=== PATIENT | male | born 1950 | race Caucasian/White ===

== ENCOUNTER → 2018-09-16 | Outpatient (CLI) | payer OTHER, BC ==
[~2018-09-16] MED LIST: CHILDREN'S ASPI81 M1 PO; COZAAR 25 MG TA25 M1 PO; DICLOFENAC SODI75 MG PO; EFFIENT10 MG PO; FENOFIBRATE160 MG PO; FLEXERIL PO; FLOMAX0.4 MG PO; INVOKANA100 MG PO; LEXAPRO20 MG PO; LIPITOR 20 MG T20 M1 PO; MIRAPEX0.125 MG PO; PRILOSEC OTC20 MG PO; PROSCAR 5MG TABL5 M1 PO; SORINE 80 MG TA80 M1 PO; TOPROL XL25 MG PO; TOUJEO MAX300 UNIT/1 SUBQ; UNICOMPLEX M TA1 TA1 PO; VITAMIN D400 UNIT PO
== END ==
LOC: RAD 08:24
DX: J98.4 Other disorders of lung (principal); J98.6 Disorders of diaphragm

== ENCOUNTER → 2018-09-23 | Outpatient (CLI) | payer OTHER, BC ==
--- NOTE | ~2018-09-23 | 2DMMODE ---
[facility] [place] [address] 2 D/M-MODE ECHOCARDIOGRAM Name: QUETA BECKER Room #: REG [facility]#: [id number] Admission: 09/23/18 Attend Phys: Fidel East MD Discharge: Date of : 54 Date of Service: 09/23/18 1002 Report #: [id number] THIS REPORT FOR: //name// APPROVED REPORT Study performed: 09/23/2018 07:55:58 EXAM: Comprehensive 2D, Doppler, and color-flow Echocardiogram Patient Location: Out-Patient Status: routine BSA: 2.35 HR: 52 bpm BP: 145/70 mmHg Other Information Study Quality: Adequate Indications Diabetes Hypertension/HDD Hx afib, tobacco abuse 2D Dimensions RVDd: 35.60 mm IVSd: 11.32 (7-11mm) LVOT Diam: 23.14 (18-24mm) LVDd: 52.51 mm PWd: 12.00 (7-11mm) Ascending Ao: 31.66 (22-36mm) LVDs: 35.08 (25-40mm) Aortic Root: 34.34 mm IVC: 20.00 mm Volumes Left Atrial Volume (Systole) Single Plane 4CH: 45.06 mL Single Plane 2CH: 47.29 mL LA ESV Index: 21.00 mL/m2 Aortic Valve AoV Peak Aime.: 1.02 m/s AO Peak Gr.: 4.19 mmHg LVOT Max P.93 mmHg LVOT Max V: 0.69 m/s JUAN Vmax: 2.85 cm2 AI Vmax: 3.05 m/s AI Stevens: 1.73 m/s2 AI PHT: 511.[address] [facility] [place] [place] [address] 2 D/M-MODE ECHOCARDIOGRAM Name: QUETA BECKER Room #: REG [facility]#: [id number] Admission: 09/23/18 Attend Phys: Fidel East MD Discharge: Date of : 54 Date of Service: 09/23/18 1002 Report #: [id number] Mitral Valve E/A Ratio: 1.5 MV Decel. Time: 257.11 ms MV E Max Aime.: 0.90 m/s MV A Aime.: 0.62 m/s MV PHT: 74.56 ms IVRT: 115.34 ms Pulmonary Valve PV Peak Aime.: 0.61 m/s PV Peak Gr.: 1.51 mmHg Pulmonary Vein P Vein S: 0.50 m/s P Vein A: 0.20 m/s P Vein D: 0.48 m/s P Vein A Dur.: 120.0 msec P Vein S/D Ratio: 1.04 Tricuspid Valve TR Peak Aime.: 2.57 m/s RAP Estimate: 10.00 mmHg TR Peak Gr.: 26.33 mmHg PA Pressure: 36.00 mmHg Left Ventricle The left ventricle is normal size. There is hypokinesis of the basal inferior segment. There is normal left ventricular wall thickness. The left ventricular systolic function is normal. The left ventricular ejection fraction is within the normal range. LVEF is 55-60%. Grade II - pseudonormal filling dynamics. Right Ventricle The right ventricle is normal size. The right ventricular systolic function is normal. Atria The left atrium size is normal. Right atrium is at the upper limits of normal. Aortic Valve The aortic valve is normal in structure. Mild aortic regurgitation. There is no aortic valvular stenosis. Mitral Valve The mitral valve is normal in structure. Moderate mitral regurgitation. No evidence of mitral valve stenosis. Tricuspid Valve The tricuspid valve is normal in structure. Trace to mild tricuspid [facility] [address] [place] [address] 2 D/M-MODE ECHOCARDIOGRAM Name: QUETA BECKER Room #: REG CL [facility]#: [id number] Admission: 09/23/18 Attend Phys: Fidel East MD Discharge: Date of : 54 Date of Service: 09/23/18 1002 Report #: [id number] regurgitation. PAP is estimated at 36 mmHg. Pulmonic Valve The pulmonary valve is normal in structure. Mild pulmonic regurgitation. Great Vessels The aortic root is normal in size. IVC is normal in size and collapses <50% with inspiration. Pericardium There is no pericardial effusion. <Conclusion> The left ventricle is normal size. There is normal left ventricular wall thickness. The left ventricular systolic function is normal. Grade II - pseudonormal filling dynamics. The right ventricle is normal size. The left atrium size is normal. Mild aortic regurgitation. Moderate mitral regurgitation. Trace to mild tricuspid regurgitation. PAP is estimated at 36 mmHg. <ELECTRONICALLY SIGNED> By: Fidel East MD 09/23/18 1002 1002 1002 Fidel East MD /INF
== END ==
LOC: CV 07:42
DX: I08.0 Rheumatic disorders of both mitral and aortic valves (principal); E11.9 Type 2 diabetes mellitus without complications; I10 Essential (primary) hypertension; I48.0 Paroxysmal atrial fibrillation; F17.291 Nicotine dependence, other tobacco product, in remission

== ENCOUNTER → 2019-04-05 | Outpatient (CLI) | payer OTHER, BC ==
--- NOTE | 2019-04-05 11:51 | 2DMMODE ---
[facility] [place] [address] [address] 2 D/M-MODE ECHOCARDIOGRAM Name: QUETA BECKER Room #: REG [facility]#: [id number] ������������� Admission: 04/05/19 ������������� Attend Phys: Fidel East MD Discharge: ��� ������������� ��� Date of : 54 Date of Service: 04/05/19 1151 �� Report #: [id number] �������� ��������������������������������������������[id number] THIS REPORT FOR: //name// APPROVED REPORT Study performed: 04/05/2019 07:49:32 EXAM: Comprehensive 2D, Doppler, and color-flow Echocardiogram Patient Location: Out-Patient Room #: Echo lab 2 Status: routine BSA: 2.41 HR: 73 bpm BP: 142/76 mmHg Rhythm: NSR Other Information Study Quality: Adequate Indications Diabetes CAD Hypertension/HDD Hx Atrial fibrillation 2D Dimensions RVDd: 31.41 mm IVSd: 12.19 (7-11mm) LVOT Diam: 22.52 (18-24mm) LVDd: 41.46 mm PWd: 12.12 (7-11mm) Ascending Ao: 29.38 (22-36mm) LVDs: 27.43 (25-40mm) Aortic Root: 28.77 mm IVC: 15.00 mm Volumes Left Atrial Volume (Systole) Single Plane 4CH: 58.62 mL Single Plane 2CH: 38.52 mL LA ESV Index: 21.00 mL/m2 Aortic Valve AoV Peak Aime.: 1.13 m/s AO Peak Gr.: 5.09 mmHg LVOT Max P.51 mmHg LVOT Max V: 0.79 m/s JUAN Vmax: 2.80 cm2 Mitral Valve [facility] [address] [place] [address] 2 D/M-MODE ECHOCARDIOGRAM Name: BECKERQUETA GLASGOW Room #: REG CL [facility]#: [id number] ������������� Admission: 04/05/19 ������������� Attend Phys: Fidel East MD Discharge: ��� ������������� ��� Date of : 54 Date of Service: 04/05/19 1151 �� Report #: [id number] �������� ��������������������������������������������[id number] E/A Ratio: 0.9 MV Decel. Time: 255.89 ms MV E Max Aime.: 0.77 m/s MV A Aime.: 0.86 m/s MV PHT: 74.21 ms IVRT: 133.79 ms Pulmonary Valve PV Peak Aime.: 0.87 m/s PV Peak Gr.: 3.02 mmHg Pulmonary Vein P Vein S: 0.54 m/s P Vein A: 0.24 m/s P Vein D: 0.38 m/s P Vein A Dur.: 110.7 msec P Vein S/D Ratio: 1.42 Tricuspid Valve TR Peak Aime.: 2.46 m/s TR Peak Gr.: 24.17 mmHg PA Pressure: 29.00 mmHg Left Ventricle The left ventricle is normal size. There is normal LV segmental wall motion. Mild concentric left ventricular hypertrophy. The left ventricular systolic function is normal. The left ventricular ejection fraction is within the normal range. LVEF is 60-65%. Grade I - abnormal relaxation pattern. Right Ventricle The right ventricle is normal size. The right ventricular systolic function is normal. Atria The left atrium size is normal. The right atrium size is normal. Aortic Valve The aortic valve is normal in structure. Mild aortic regurgitation. There is no aortic valvular stenosis. Mitral Valve The mitral valve is normal in structure. Mild mitral regurgitation. No evidence of mitral valve stenosis. Tricuspid Valve The tricuspid valve is normal in structure. There is trace tricuspid regurgitation. Estimated PAP 29 mmHg. There is no pulmonary [facility] [address] [place] [address] 2 D/M-MODE ECHOCARDIOGRAM Name: QUETA BECKER Room #: REG [facility]#: [id number] ������������� Admission: 04/05/19 ������������� Attend Phys: Fidel East MD Discharge: ��� ������������� ��� Date of : 54 Date of Service: 04/05/19 1151 �� Report #: [id number] �������� ��������������������������������������������[id number] hypertension. Pulmonic Valve The pulmonary valve is normal in structure. Trace pulmonic regurgitation. Great Vessels The aortic root is normal in size. IVC is normal in size and collapses >50% with inspiration. Pericardium There is no pericardial effusion. <Conclusion> The left ventricle is normal size. Mild concentric left ventricular hypertrophy. The left ventricular systolic function is normal. Grade I - abnormal relaxation pattern. The right ventricle is normal size. The left atrium size is normal. Mild aortic regurgitation. Mild mitral regurgitation. There is trace tricuspid regurgitation. Estimated PAP 29 mmHg. ��������������������������������������������� <ELECTRONICALLY SIGNED> ���������������������������������������� By: Fidel East MD ��������������������������������������������� 04/05/19 1151 1151 1151 Fidel East MD /INF
== END ==
LOC: CV 07:36
DX: I08.0 Rheumatic disorders of both mitral and aortic valves (principal); I48.0 Paroxysmal atrial fibrillation; I25.10 Atherosclerotic heart disease of native coronary artery without angina pectoris; I11.9 Hypertensive heart disease without heart failure; E11.9 Type 2 diabetes mellitus without complications

== ENCOUNTER → 2019-06-27 | Outpatient (CLI) | payer OTHER ==
--- NOTE | ~2019-06-27 | P ---
[facility] [place] [address] PROCEDURE REPORT Name: QUETA BECKER Room #: REG [facility]#: [id number] Admission: 06/27/19 Attend Phys: Curtis Mario MD Discharge: Date of : 54 Report #: [id number] THIS REPORT FOR: //name// CC: Kit Mario PROCEDURE: Implantable loop recorder. PREOPERATIVE DIAGNOSIS: Atrial fibrillation. POSTOPERATIVE DIAGNOSIS: Atrial fibrillation. DESCRIPTION OF PROCEDURE: The patient underwent informed consent. The patient was prepped and draped in sterile fashion. I injected lidocaine at the incision site. Incision was made and the device was injected under the skin. Single layer of suture was performed and surgical glue was placed to outer skin layer. There were no procedure related complications. The implanted device was a [employer] model number 3500, serial number [id number]. CONCLUSIONS: Successful implantation of implantable loop recorder. By: [id number] Curtis Mario MD /nt
[2019-06-27 12:39] VITALS: BP 152/49
== END | disposition home or self-care (01) ==
LOC: CATH 10:12
DX: I48.91 Unspecified atrial fibrillation (principal); Z79.01 Long term (current) use of anticoagulants; Z79.82 Long term (current) use of aspirin; Z79.899 Other long term (current) drug therapy

== ENCOUNTER → 2019-09-19 | Outpatient (CLI) | payer OTHER, BC ==
[~2019-09-19] MED LIST changes: +METFORMIN HCL500 M3 PO; +PLAVIX 75 MG TA75 MG PO; +PRADAXA150 MG PO
== END ==
LOC: NUC 07:46
DX: I25.10 Atherosclerotic heart disease of native coronary artery without angina pectoris (principal); I10 Essential (primary) hypertension; I48.91 Unspecified atrial fibrillation; E11.9 Type 2 diabetes mellitus without complications; F17.200 Nicotine dependence, unspecified, uncomplicated

== ENCOUNTER 2019-10-03 07:23 | Observation (INO) | payer OTHER, BC ==
[2019-10-03] VITALS (11 sets, daily range): BP systolic 122–137; BP diastolic 53–74
[~2019-10-03] VITALS: Ht 190.5 cm; Wt 115.7 kg
[~2019-10-03 07:23] MED LIST changes: -METFORMIN HCL500 M3 PO; -PLAVIX 75 MG TA75 MG PO; -PRADAXA150 MG PO
[2019-10-03 08:00] LABS: HEMATOCRIT 46.8 % (42.0-52.0); HEMOGLOBIN 15.4 gm/dL (14.0-18.0); MCV 84.8 fL (80.0-100.0); RBC 5.52 mil/uL (4.50-6.00); RDW 14.6 % (10.5-14.5)
[2019-10-03] MEDS ORDERED: PRADAXA150 MG PO (08:34)
[2019-10-03] MEDS ORDERED: METFORMIN HCL500 M3 PO (08:37)
--- NOTE | 2019-10-03 16:29 | CATHLAB ---
[facility] [address] [place] [address] INVASIVE PROCEDURE REPORT Name: QUETA BECKER Room #: 203-P ADM IN ..#: [id number] Admission: 10/03/19 Attend Phys: Fidel East MD Discharge: Date of : 54 Report #: [id number] THIS REPORT FOR: //name// APPROVED REPORT Study performed: 10/03/2019 08:29:03 Patient Details Patient Status: Out-Patient Room #: The patient is a 69 year-old male Event Personnel Fidel East Eggs Inspector, Bri Ramirez RTR Elpidio Quan Roberta Monitor, Betsy Lai RN forepart rounder Performed Art Access - R radial artery 66681 Initial Mod Sed Same Phys/QHP Gr5y 625140 64214 Mod Sed Same Phys/QHP Ea 014140 Left Heart Cath w/or w/o Coronaries [id number] [facility] Place w/wo Plasty Single SEPIDEH 927754 Hemostasis with Hemoband Indication Dyspnea, Positive stress test, The patient's anginal equivalent is dyspnea on exertion. Risk Factors Hypercholesterolemia, Coronary Artery DiseaseHypertension, Diabetes Previous Procedures/Diagnoses Previous PCI, Previous AK Procedure Narrative The Right Wrist^ was infiltrated with 1% Lidocaine subcutaneous anesthesia. A PINNACLE 6FR TIF Sheath #[id number] sheath was inserted into the Right Radial Artery^. Coronary angiography was performed using coronary diagnostic catheters. The right coronary system was accessed and visualized with a JR4 catheter. The left coronary system was accessed and visualized with a JL3.5 catheter. The left ventricle was accessed and visualized with a ANGLE PIG catheter. There was no hematoma. Intraoperative Conscious Sedation Sedation start time: 804 Case end Time: 999 Fentanyl 50 mcg Versed 1 mg [facility] [address] [place] [address] INVASIVE PROCEDURE REPORT Name: QUETA BECKER Room #: 203-P [facility] IN [facility].#: [id number] Admission: 10/03/19 Attend Phys: Fidel East MD Discharge: Date of : 54 Report #: [id number] Fluoro Time: 16.60 minutes Dose: DAP 32989.00 cGycm2 3381 mGy Contrast Type and Amount: 110 Coronary Angiography The patient's coronary anatomy is right dominant. Diagnostic Cath Left Main This is a large caliber vessel, patent with no flow-limiting lesions. LAD This is a moderate-sized caliber vessel, traversing the anterior wall and terminating at the apex. There is mild disease in the proximal segment, 20%. Diagonal 1 This is a small to moderate size caliber vessel, patent with no flow-limiting lesions. Diagonal 2 This is a small to moderate size caliber vessel, with mild disease proximally. Circumflex There is mild disease in the proximal segment. OM1 This is a small to moderate size caliber vessel, with mild disease proximally. Right Coronary This is a dominant vessel. There is a patent stent in the proximal/mid segment with mild restenosis. R PDA This is a patent vessel, with no flow-limiting lesions. RPLV There is a severe occlusion in the proximal segment, 80%. Left Ventriculography Left Ventriculography was not performed. Ejection Fraction was 55-60% based off patient's Nuclear Cardiac Stress Test. An LVEDP was measured and there is no gradient across the outflow tract. Hemodynamics The aortic pressure is 108/57 mmHg with a mean of 82 mmHg. The left ventricular pressure is 117/12 mmHg with a mean of mmHg. The left ventricular end diastolic pressure is 21 mmHg. There was no gradient across the aortic valve upon pullback. PCI Technique Lesion Percutaneous coronary intervention was performed on the right posterior lateral branch. The lesion stenosis prior to intervention was 80% with NADINE 3 flow. A VISTA 6FR JR 4 #[id number] Guide Catheter was used to engage the ostium. A Luge Wire .014 x 182CM #[id number] Interventional Guidewire was used to cross the lesion. [facility] [address] [address] INVASIVE PROCEDURE REPORT Name: QUETA BECKER Room #: 203-P [facility] IN M.R.#: [id number] Admission: 10/03/19 Attend Phys: Fidel East MD Discharge: Date of : 54 Report #: [id number] BALLOON DILATION A Balloon catheter TREK RX 2.25 X 12 #[id number] was inserted and inflated up to 6.00atm for 33seconds. Additional Inflation: 8.00atm for 15seconds. STENT DEPLOYMENT A stent RESOLUTE SUNI RX 2.25 X 18 #[id number] was inserted and inflated up to 16.00atm for 24seconds. Final angiography reveals 0 % stenosis with NADINE 3 flow. Conclusion 1. Successful insertion of a drug-eluting stent into the proximal segment of the right posterior lateral artery. 2. There is a patent stent in the proximal/mid segment of the RCA with mild restenosis. 3. There is mild disease in the LAD and left circumflex arteries. 4. Normal LV systolic function. 5. Recommend dual antiplatelet therapy and risk factor management. <ELECTRONICALLY SIGNED> By: Fidel East MD 10/03/19 1629 28 28 Fidel East MD /INF
--- NOTE | 2019-10-03 16:43 | EKG ---
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: Dana HASTINGS : 1950 Requested By: Fidel East Order Number: [id number] MD: Vaughn Garcia Measurements Intervals [place] Rate: 68 P: -11 [place]: 161 QRS: 24 QRSD: 101 T: -2 QT: 434 QTc: 462 Interpretive Statements Sinus rhythm Abnormal R-wave progression, early transition Inferior infarct, age indeterminate Compared to ECG 07/28/2018 17:32:46 No significant changes Electronically Signed On 10-03-2019 16:43:09 AEROPHYSICIST by Vaughn Garcia [email or web address] <ELECTRONICALLY SIGNED> By: Vaughn Garcia MD, [facility] 10/03/19 1643 0753 0753 Vaughn Garcia MD, [facility] /EPI
--- NOTE | 2019-10-03 16:47 | EKG ---
[address] [place] [address] ELECTROCARDIOGRAM REPORT Name: QUETA BECKER Room #: 203-P [facility] M.R.#: [id number] Admission: 10/03/19 Attend Phys: Fidel East MD Discharge: Date of : 54 Report #: [id number] THIS REPORT FOR: //name// [facility] Test Date: 2019-10-03 Test Time: 11:55:49 Pat Name: QUETA BECKER Department: Room: 203 P Gender: M Painter Plate: Dana HASTINGS : 1950 Requested By: Fidel East Order Number: [id number] MD: Vaughn Garcia Measurements Intervals [place] Rate: 63 P: -11 [place]: 183 QRS: 26 QRSD: 98 T: 3 QT: 449 QTc: 460 Interpretive Statements Sinus rhythm Abnormal R-wave progression, early transition Inferior infarct, old Compared to ECG 07/28/2018 17:32:46 No significant changes Electronically Signed On 10-03-2019 16:47:14 AIR AND WATER TESTER by Vaughn Garcia [email or web address] <ELECTRONICALLY SIGNED> By: Vaughn Garcia MD, [facility] 10/03/19 1647 1155 1155 Vaughn Garcia MD, [facility] /EPI
--- NOTE | 2019-10-03 18:06 | NUR ---
ASSUMMED PT CARE AT APPROXIMATELY 1130. PT A&O X4. ASSESSMENT CHARTED. FALL PRECAUTIONS IN PLACE. PT DENIES HAVING CHEST PAIN. PT DENIES HAVING SOB. PT DENIES HAVING ACUTE PAIN. PT'S POST PROCEDURAL VS COMPLETE. PT'S VITAL SIGNS STABLE. PT R RADIAL C/D/I. NO HEMATOMA. ADMISSION PROCESS COMPLETE. BLOOD SUGARS STABLE. PT COMFORTABLE IN BED. PT DENIES HAVING CONCERNS.
--- NOTE | 2019-10-04 00:23 | NUR ---
ASSESSMENT: PT REMAIN ALERT AND ORIENT TIMES FOUR. UP AD ALLEN TO BR. RIGHT RADIAL C/D/I. VSS, AFEBRILE. DENIES CP, SOB AND DIZZINESS. SR PER MONITOR WITH OCCASSIONAL 1ST DEGREE AND BBB. AT APPROXIMATELY 0000 PT STATED THAT HE FELT CLAMMY AND WAS SWEATY. BLOOD SUGAR WAS THEN CHECKED, WHICH WAS 60. PT WAS GIVEN 4 0Z OF APPLE JUICE, A YOGART AND A MILK. BLOOD SUGAR THEN INCREASED TO 84 POST 20 MINS OF EATING AND DRINKING APPLE JUICE. PT REMAINED ALERT AND ORIENT TIMES FOUR DURING THE LOW BS. PT STATE THAT HE FELT SO MUCH BETTER ONCE HIS BLOOD SUGAR INCREASED. NO FURTHER COMPLAINTS AT THIS TIME. GOOD PROGRESS TOWARDS DC GOALS, WILL CONTINUE TO MONITOR.
[2019-10-04 00:31] VITALS: BP 144/77
[2019-10-04 05:32] LABS: HEMATOCRIT 43.7 % (42.0-52.0); HEMOGLOBIN 14.4 gm/dL (14.0-18.0); MCH 28.1 pg (26.0-34.0); MCHC 32.8 g/dL (28.0-37.0); MCV 85.7 fL (80.0-100.0); RBC 5.11 mil/uL (4.50-6.00); WBC 6.8 thou/uL (4.0-11.0)
[2019-10-04 05:36] LABS: CALCIUM 9.5 mg/dL (8.5-10.1); CREATININE 1.2 mg/dL (0.7-1.3); POTASSIUM 3.7 mmol/L (3.5-5.1); TOTAL BILIRUBIN 0.5 mg/dL (<0.1-1.0); TOTAL PROTEIN 6.2 g/dL (6.4-8.2)
[2019-10-04 05:49] VITALS: BP 109/42
[2019-10-04 06:44] LABS: ALBUMIN 3.1 g/dL (3.4-5.0)
[2019-10-04 07:42] VITALS: BP 121/65
--- NOTE | 2019-10-04 08:07 | EKG ---
[address] [address] ELECTROCARDIOGRAM REPORT Name: QUETA BECKER Room #: 203-P [facility] M.R.#: [id number] Admission: 10/03/19 Attend Phys: Fidel East MD Discharge: Date of : 54 Report #: [id number] THIS REPORT FOR: //name// [facility] Test Date: 2019-10-04 Test Time: 07:06:12 Pat Name: QUETA BECKER Department: Room: 203 P Gender: M Ore Puncher: KENNA : 1950 Requested By: Fidel East Order Number: [id number] MD: Vaughn Garcia Measurements Intervals [place] Rate: 73 P: -14 [place]: 167 QRS: 32 QRSD: 96 T: -15 QT: 401 QTc: 442 Interpretive Statements Sinus rhythm Possible inferior infarct, old Nonspecific ST segment abnormality Compared to ECG 10/03/2019 11:55:49 No significant changes Electronically Signed On 10-04-2019 8:06:59 FIRE EXTINGUISHER CHARGER by Vaughn Garcia [email or web address] <ELECTRONICALLY SIGNED> By: Vaughn Garcia MD, [facility] 10/04/19805 5 5 Vaughn Garcia MD, FAC /EPI
[2019-10-04] MEDS ORDERED: PLAVIX 75 MG TA75 MG PO (08:17)
[2019-10-04 10:53] VITALS: BP 121/65
[2019-10-04 11:32] VITALS: BP 141/65
--- NOTE | 2019-10-04 14:00 | NUR ---
ASSUMMED PT CARE AT APPROXIMATELY 0700. A&O X4. FALL PRECAUTIONS IN PLACE. ASSESMENT CHARTED. PT DENIES HAVING CHEST PAIN. PT DENIES HAVING SOB. PT DENIES HAVING ACUTE PAIN. PT VITAL SIGNS STABLE. PT BLOOD SUGARS STABLE. IV DC. TELE DC. PT DISCHARGING HOME C SELF CARE. PT RECEIVED DISCHARGE EDUCATION. PT STATED UNDERSTANDING AND DENIED HAVING FURTHER QUESTIONS. PT RECEIVING HOSPITAL TRANSPORT TO TAKE HIM OFF THE UNIT. PT TAKING A CAB HOME C HOSPITAL CAB VOUCHER. PT R RADIAL CLEAN AND DRY. NO HEMATOMA. PT DENIES HAVING FURTHER CONCERNS.
--- NOTE | 2019-10-19 08:04 | D ---
[facility] [place] [address] DISCHARGE SUMMARY Name: QUETA BECKER Room #: 203-P [facility] Aamir Jackman#: [id number] Admission: 10/03/19 Attend Phys: Fidel East MD Discharge: 10/04/19 Date of : 54 Report #: [id number] THIS REPORT FOR: //name// CC: Fidel Olea FINAL DIAGNOSES: 1. Unstable angina, status post percutaneous coronary intervention. 2. History of non-ST elevation myocardial infarction. 3. Paroxysmal atrial fibrillation. 4. Diabetes mellitus. 5. Cardiomyopathy. 6. Hypertension. 7. Hypercholesterolemia. HOSPITAL COURSE: Please see the original H and P for full details. The patient presented with dyspnea on exertion. A nuclear stress test revealed inferior wall ischemia with hypokinesis. He underwent an elective cardiac catheterization. The stent in the proximal RCA was patent with mild restenosis. There was a severe occlusion in the proximal segment of the right posterolateral branch. Angioplasty was performed with placement of one drug-eluting stent. This was performed via the right radial artery access. He has remained hemodynamically stable overnight. He is stable for discharge today. FINAL DISPOSITION: Pradaxa 150 mg twice a day, Plavix 75 mg daily, Lipitor 20 mg daily, Flexeril, TriCor, insulin, losartan 25 mg daily, omeprazole, sotalol 80 mg b.i.d. and Actoplus Met. <ELECTRONICALLY SIGNED> By: Fidel East MD 10/19/19 0804 0827 Fidel East MD /deepa
== END 2019-10-04 13:21 | disposition home or self-care (01) ==
LOC: CATH 07:23 → 2N 10:23 → CATH 11:56 → ENTRNSPT 10-04 12:32 → EDTRNSPTSTS 10-04 12:36 → 2N 10-04 13:21
PROVIDERS: ADMIT Internal Medicine Cardiovascular Disease
DX: I25.110 Atherosclerotic heart disease of native coronary artery with unstable angina pectoris (principal); I25.2 Old myocardial infarction; I48.0 Paroxysmal atrial fibrillation; E11.9 Type 2 diabetes mellitus without complications; I42.9 Cardiomyopathy, unspecified; I10 Essential (primary) hypertension; E78.00 Pure hypercholesterolemia, unspecified; Z79.01 Long term (current) use of anticoagulants; Z79.4 Long term (current) use of insulin; Z79.899 Other long term (current) drug therapy

== ENCOUNTER → 2019-12-06 | Outpatient (CLI) | payer OTHER, BC ==
[~2019-12-06] MED LIST changes: +METFORMIN HCL500 M3 PO; +PLAVIX 75 MG TA75 MG PO; +PRADAXA150 MG PO
== END ==
LOC: SJCVC 09:35
PROVIDERS: ATTEND Internal Medicine Cardiovascular Disease
DX: R94.31 Abnormal electrocardiogram [ECG] [EKG] (principal); I11.9 Hypertensive heart disease without heart failure; I21.19 ST elevation (STEMI) myocardial infarction involving other coronary artery of inferior wall; I48.91 Unspecified atrial fibrillation; I25.10 Atherosclerotic heart disease of native coronary artery without angina pectoris; E78.5 Hyperlipidemia, unspecified; E11.9 Type 2 diabetes mellitus without complications

== ENCOUNTER → 2020-03-22 | Outpatient (CLI) | payer OTHER, BC | LOC: SJCVC 08:40 | DX: I48.91 Unspecified atrial fibrillation (principal); I10 Essential (primary) hypertension; E78.5 Hyperlipidemia, unspecified; E11.9 Type 2 diabetes mellitus without complications; I25.10 Atherosclerotic heart disease of native coronary artery without angina pectoris; Z79.82 Long term (current) use of aspirin; Z79.899 Other long term (current) drug therapy ==

== ENCOUNTER → 2020-05-07 | Outpatient (CLI) | payer OTHER, BC | LOC: SJCVC 10:32 | PROVIDERS: ATTEND Internal Medicine Cardiovascular Disease | DX: R94.31 Abnormal electrocardiogram [ECG] [EKG] (principal); I25.10 Atherosclerotic heart disease of native coronary artery without angina pectoris; I42.9 Cardiomyopathy, unspecified; I48.0 Paroxysmal atrial fibrillation; I10 Essential (primary) hypertension; E78.00 Pure hypercholesterolemia, unspecified; I25.2 Old myocardial infarction; F17.290 Nicotine dependence, other tobacco product, uncomplicated; Z79.899 Other long term (current) drug therapy ==

== ENCOUNTER → 2020-11-05 | Outpatient (CLI) | payer OTHER, BC | LOC: SJCVCIMAG 09:55 | PROVIDERS: ATTEND Internal Medicine Cardiovascular Disease | DX: I08.3 Combined rheumatic disorders of mitral, aortic and tricuspid valves (principal); R94.31 Abnormal electrocardiogram [ECG] [EKG]; I45.10 Unspecified right bundle-branch block; I25.10 Atherosclerotic heart disease of native coronary artery without angina pectoris; I25.2 Old myocardial infarction; I42.9 Cardiomyopathy, unspecified; I48.0 Paroxysmal atrial fibrillation; I11.9 Hypertensive heart disease without heart failure; E11.9 Type 2 diabetes mellitus without complications; F17.200 Nicotine dependence, unspecified, uncomplicated; Z95.5 Presence of coronary angioplasty implant and graft; Z79.4 Long term (current) use of insulin; Z79.82 Long term (current) use of aspirin; Z79.899 Other long term (current) drug therapy ==

== ENCOUNTER → 2020-12-11 | Outpatient (CLI) | payer OTHER, BC | LOC: SJCVC 09:22 | PROVIDERS: ATTEND Internal Medicine Cardiovascular Disease | DX: I48.0 Paroxysmal atrial fibrillation (principal); R94.31 Abnormal electrocardiogram [ECG] [EKG]; I25.10 Atherosclerotic heart disease of native coronary artery without angina pectoris; E11.9 Type 2 diabetes mellitus without complications; I48.91 Unspecified atrial fibrillation; I25.2 Old myocardial infarction; E78.5 Hyperlipidemia, unspecified; K21.9 Gastro-esophageal reflux disease without esophagitis; G47.33 Obstructive sleep apnea (adult) (pediatric); I48.92 Unspecified atrial flutter; I10 Essential (primary) hypertension; F17.200 Nicotine dependence, unspecified, uncomplicated; Z98.890 Other specified postprocedural states; Z79.82 Long term (current) use of aspirin; Z79.4 Long term (current) use of insulin; Z79.899 Other long term (current) drug therapy; Z82.49 Family history of ischemic heart disease and other diseases of the circulatory system ==

== ENCOUNTER → 2021-05-01 | Outpatient (CLI) | payer OTHER, BC | LOC: SJCVC 11:39 | PROVIDERS: ATTEND Internal Medicine Cardiovascular Disease | DX: R94.31 Abnormal electrocardiogram [ECG] [EKG] (principal); I25.10 Atherosclerotic heart disease of native coronary artery without angina pectoris; I48.91 Unspecified atrial fibrillation; I42.9 Cardiomyopathy, unspecified; I10 Essential (primary) hypertension; E78.00 Pure hypercholesterolemia, unspecified; E11.9 Type 2 diabetes mellitus without complications; K21.9 Gastro-esophageal reflux disease without esophagitis; I25.2 Old myocardial infarction; G47.33 Obstructive sleep apnea (adult) (pediatric); F17.290 Nicotine dependence, other tobacco product, uncomplicated; Z98.890 Other specified postprocedural states; Z79.82 Long term (current) use of aspirin; Z79.4 Long term (current) use of insulin; Z79.899 Other long term (current) drug therapy; Z82.49 Family history of ischemic heart disease and other diseases of the circulatory system ==

== ENCOUNTER → 2021-05-21 | Outpatient (CLI) | payer OTHER, BC | LOC: SJCVC 13:14 | PROVIDERS: ATTEND Internal Medicine Cardiovascular Disease | DX: E78.00 Pure hypercholesterolemia, unspecified (principal); E78.49 Other hyperlipidemia; I48.91 Unspecified atrial fibrillation; I10 Essential (primary) hypertension; I25.10 Atherosclerotic heart disease of native coronary artery without angina pectoris; E78.5 Hyperlipidemia, unspecified ==

== ENCOUNTER → 2021-06-12 | Outpatient (CLI) | payer OTHER, BC | LOC: SJCVC 10:28 | PROVIDERS: ATTEND Internal Medicine Cardiovascular Disease | DX: E78.00 Pure hypercholesterolemia, unspecified (principal); E11.9 Type 2 diabetes mellitus without complications; I48.91 Unspecified atrial fibrillation; I10 Essential (primary) hypertension; I25.10 Atherosclerotic heart disease of native coronary artery without angina pectoris; I25.2 Old myocardial infarction; Z79.82 Long term (current) use of aspirin; Z79.4 Long term (current) use of insulin; Z79.899 Other long term (current) drug therapy ==

== ENCOUNTER → 2021-10-31 | Outpatient (CLI) | payer OTHER, BC | LOC: SJCVCIMAG 07:15 | PROVIDERS: ATTEND Internal Medicine Cardiovascular Disease | DX: I25.10 Atherosclerotic heart disease of native coronary artery without angina pectoris (principal); I42.9 Cardiomyopathy, unspecified; I48.0 Paroxysmal atrial fibrillation; I10 Essential (primary) hypertension; E11.9 Type 2 diabetes mellitus without complications; E78.5 Hyperlipidemia, unspecified; G47.33 Obstructive sleep apnea (adult) (pediatric); R06.00 Dyspnea, unspecified; F17.200 Nicotine dependence, unspecified, uncomplicated; Z79.82 Long term (current) use of aspirin; Z79.4 Long term (current) use of insulin; Z79.899 Other long term (current) drug therapy; Z72.89 Other problems related to lifestyle ==